=== PATIENT | male | born 1985 | race Caucasian/White ===

== ENCOUNTER 2021-11-21 21:13 | Emergency (ER) | payer BC, SELFPAY ==
--- NOTE | ~2021-11-21 | CT_ITS ---
EXAMINATION: CT soft tissue neck w con DATE: 11/22/2021 18:33 INDICATION: Strangulation TECHNIQUE: Computed tomography (CT) of the neck was performed with 75 mL Omnipaque-350 intravenous co ntrast. Automated exposure control and iterative reconstruction technique were employed. Exam dose: 450.10 mGy-cm total exam DLP. COMPARISON: None FINDINGS: No cervical mass lesion or lymphadenopathy. No subcutaneous emphysema or pneumomediastinum or pneumothorax. Oral pharyngeal airway, aryepiglottic folds, epiglottis and trachea appear intact. N o superior mediastinal mass lesion or lymphadenopathy. Included upper lung cazares are clear. Normal s ymmetric submandibular and parotid glands. No cervical spine fracture or dislocation or locked facet. IMPRESSION: No significant abnormality Reviewed, dictated and finalized at [facility] Reviewed, dictated and finalized at [facility]. IMPRESSION: No significant abnormality
[2021-11-21 21:20] VITALS: BP 129/84; PULSE 79; RESP 17; TEMP 36.1; O2SAT 99
--- NOTE | 2021-11-21 21:32 | PC.NURSE ---
While this nurse is drawing patients blood, patient also states I lied to you, I did drink a half pint today. Please help me, I know that if I go home today, I will commit suicide. I really need help.
[2021-11-21 21:48] LABS: Basophils Percent Auto 0.5 % (0.2-1.2); Eosinophils Absolute Auto 0.2 K/mm3 (0-0.3); Eosinophils Percent Auto 2.4 % (0-4.4); Hematocrit 42.6 % (42.0-52.0); Hemoglobin 14.5 g/dL (14.0-18.0); Immature Granulocyte Absolute 0.03 K/mm3 (0.00-0.031); Immature Granulocyte Percent A 0.4 % (0-0.5); Lymphocytes Absolute Auto 3.09 K/mm3 (0.9-3.2); Lymphocytes Percent Auto 39.3 % (18.3-44.2); Mean Corpuscular Hemoglobin 30.8 pg (26-34); Mean Corpuscular Volume 90.4 fl (80-100); Monocytes Absolute Auto 0.5 K/mm3 (0.1-0.6); Monocytes Percent Auto 6.7 % (2.6-8.5); Neutrophils Percent Auto 50.7 % (45.5-73.1); Platelet Count Result 298 k/mm3 (150-375); Red Blood Count 4.71 M/mm3 (4.6-6.20); Red Cell Distribution Width 12.1 % (11.5-14.5); White Blood Count 7.9 K/mm3 (4.5-10.0)
--- NOTE | 2021-11-21 21:54 | ED.GENADULT ---
HPI - General Adult General Chief complaint: Psychiatric Symptoms Stated complaint: SI Time Seen by Provider: 11/21/21 21:46 History of Present Illness HPI narrative: Patient 36-year-old gentleman who presents the emergency department with chief complaint of suicidal ideation. Patient reports that he has been suicidal for some period of time and reports that today he was feeling more suicidal and decided to take a belt and bullet around his neck. The patient reports no loss of consciousness denies neck pain patient states that he was talking to a person on the phone whenever he was doing this and they told him to stop that he decided to stop the patient states that he needs some psychiatric help and feels as though he needs to be hospitalized. Related Data Allergies Allergy/AdvReac Type Severity Reaction Status Date / Time No Known Allergies Allergy Verified 11/21/21 21:25 Review of Systems Review of Systems: A 10 system review of systems was completed on the patient and is negative except for what is stated in the HPI. Nursing and ancillary documentation was reviewed. [facility] Social History Social History Substance use type: methamphetamine Exam Narrative: GENERAL: Well-appearing, well-nourished, and in no acute distress. HEAD: Normocephalic, atraumatic. EYES: PERRLA and EOMI. ENT: Nares clear, no rhinorrhea or epistaxis. Mucous membranes moist. NECK: Supple. No bruising present no ligature pavon no tenderness no crepitance CHEST: Clear to auscultation. No respiratory distress. HEART: Regular rate and rhythm. No murmur heard. Normal peripheral pulses. ABDOMEN: Soft, nontender, nondistended, normal active bowel sounds. EXTREMITIES: Normal range of motion. No edema. SKIN: Warm, dry, no rash. NEURO: No focal deficits. Alert and oriented x3. PSYCH: Normal mood and affect. Course Course Emergency Course: Patient is medically cleared for psychiatric referral evaluation admission and transfer Vital Signs Vital signs: Vital Signs Temperature 36.1 C L 11/21/21 21:20 Pulse Rate 79 11/21/21 21:20 Respiratory Rate 17 11/21/21 21:20 Blood Pressure 129/84 11/21/21 21:20 Pulse Oximetry 99 11/21/21 21:20 Oxygen Delivery Room Air 11/21/21 21:20 Temperature 36.1 C L 11/21/21 21:20 Pulse Rate 79 11/21/21 21:20 Respiratory Rate 17 11/21/21 21:20 Blood Pressure 129/84 11/21/21 21:20 Pulse Oximetry 99 11/21/21 21:20 Oxygen Delivery Room Air 11/21/21 21:20 Medical Decision Making Vital Signs Vital Signs: Vital Signs Temperature 36.1 C L 11/21/21 21:20 Pulse Rate 79 11/21/21 21:20 Respiratory Rate 17 11/21/21 21:20 Blood Pressure 129/84 11/21/21 21:20 Pulse Oximetry 99 11/21/21 21:20 Oxygen Delivery Room Air 11/21/21 21:20 Temperature 36.1 C L 11/21/21 21:20 Pulse Rate 79 11/21/21 21:20 Respiratory Rate 17 11/21/21 21:20 Blood Pressure 129/84 11/21/21 21:20 Pulse Oximetry 99 11/21/21 21:20 Oxygen Delivery Room Air 11/21/21 21:20 Lab Data Result diagrams: 11/21/21 21:29 11/21/21 21:29 Labs: Lab Results 11/21/21 11/21/21 11/21/21 Range/Units 21:29 21:29 21:29 WBC 7.9 (4.5-10.0) K/mm3 RBC 4.71 (4.6-6.20) M/mm3 Hgb 14.5 (14.0-18.0) g/dL Hct 42.6 (42.0-52.0) % MCV 90.4 (80-100) fl MCH 30.8 (26-34) pg MCHC 34.0 (32-36) g/dl RDW 12.1 (11.5-14.5) % Plt Count 298 (150-375) k/mm3 MPV 10.0 (7.4-10.4) fl Immature Gran % (Auto) 0.4 (0-0.5) % Neut % (Auto) 50.7 (45.5-73.1) % Lymph % (Auto) 39.3 (18.3-44.2) % [place] % (Auto) 6.7 (2.6-8.5) % Eos % (Auto) 2.4 (0-4.4) % Baso % (Auto) 0.5 (0.2-1.2) % Lymph # (Auto) 3.09 (0.9-3.2) K/mm3 [place] # (Auto) 0.5 (0.1-0.6) K/mm3 Eos # (Auto) 0.2 (0-0.3) K/mm3 Baso # (Auto) 0.0 (0.0-0.1) K/mm3 Abs Immat
[2021-11-21 21:57] LABS: Ethanol 159 mg/dL (<10)
[2021-11-21 22:00] LABS: Alanine Aminotransferase 21 U/L (6-50); Albumin Level 4.8 g/dL (3.5-5.1); Alkaline Phosphatase 86 U/L (38-126); Anion Gap 14 mmol/L (8-16); Aspartate Amino Transferase 29 U/L (17-59); Bilirubin,Total 0.5 mg/dL (0.2-1.3); Blood Urea Nitrogen 18 mg/dL (9-20); Calcium 9.5 mg/dL (8.4-10.2); Carbon Dioxide 26 mmol/L (22-30); Chloride 103 mmol/L (98-107); Estimated CRCL calculation 66 ml/min; Estimated Glomerular Filt Rate > 60; Glucose 94 mg/dL (65-110); Potassium 4.2 mmol/L (3.4-5.0); Sodium 143 mmol/L (137-145)
--- NOTE | 2021-11-21 22:03 | PC.NURSE ---
Sitter at bedside. Patient states that he is wanting to kill himself and he doesnt feel safe leaving. Patient asks the nurse make sure he does not leave because he is going to kill himself. Patient states, I would like to be taken to a facility that will keep me and make sure I do not kill myself. I dont care if you have to take me in restraints This nurse told the patient if he is willing to go when they take him we will not need restraints. Patient states he is willing to go anywhere for help
[2021-11-22 00:34] LABS: Add Urine Microscopic? YES; Appearance Urine Clear (Clear); Bilirubin Urine Negative (Negative); Blood Urine 3+ (Negative); Color Urine Yellow (Yellow); Glucose Urine UA Negative (Negative); Ketones Urine Trace mg/dL (Negative); Leukocyte Esterase Ur Negative LEU/UL (Negative); Nitrate Urine Negative (Negative); Protein Urine 1+ mg/dL (Negative); Specific Grav Ur >= 1.030 (1.001-1.035); Urobilinogen Urine 0.2 mg/dL (<2.0); pH Urine 5.5 (5.0-9.0)
[2021-11-22 00:47] LABS: Bacteria Urine Trace /hpf; Mucus Urine Rare /lpf; RBC Urine >75 /hpf (0-2); Squamous Epithelial Cell Urine Rare /hpf (Few); WBC Urine 0-3 /hpf
[2021-11-22 00:52] LABS: Barbiturate Screen Urine Negative (Negative); Benzodiazepines Screen Urine Negative (Negative)
[2021-11-22 00:53] LABS: Cannabinoid Screen Urine Positive (Negative); Cocaine Screen Urine Negative (Negative); Methadone Screen Urine Negative (Negative); Opiate Screen Urine Negative (Negative); Phencyclidine Screen Urine Negative (Negative)
[2021-11-22 01:05] LABS: Amphetamine Screen Urine Negative (Negative)
[2021-11-22 01:09] LABS: Acetaminophen < 10 ug/mL (10-30); Salicylate < 1.0 mg/dL (2-20)
[2021-11-22 01:24] LABS: SARS-CoV-2 RNA PCR Negative
--- NOTE | 2021-11-22 06:02 | PC.NURSE ---
Tis RN called crisis and they stated no news on a bed yet.
--- NOTE | 2021-11-22 11:04 | PC.NURSE ---
1100 Assumed Pt care from Ewa Maddox RN
[2021-11-22] MEDS: NICOTINE (*PBKC) 7 MG PATCH 1 PATCH TRANSDERM (12:06)
--- NOTE | 2021-11-22 12:16 | PC.NURSE ---
1151 - Called [facility], spoke with Gabby to check the status of pt case. Pt was seen by Paola early this am, but Gabby stated that she had not received an email regarding pt. Will contact Paola to see the status and return call.
--- NOTE | 2021-11-22 13:13 | PC.NURSE ---
1247 Gabby from [facility] returned call. Requested pt chart sent to [facility] in [place]. Fax sent, 3900 Gabby called, requested facesheet to be sent to [facility], fax sent
--- NOTE | 2021-11-22 15:01 | PC.NURSE ---
1450 Gabby from [facility] called, stated [facility] was requesting the name of the Covid test, machine name and to have the paperwork sent to [facility]. Fax sent
--- NOTE | 2021-11-22 15:27 | PC.NURSE ---
Addendum entered by Cathleen Roy RN 11/22/21 15:49: [facility] called to speak with pt. Pt currently on the phone with Leana. Original Note: [facility] called to speak with pt. Pt currently on the phone with [facility]
--- NOTE | 2021-11-22 15:48 | PC.NURSE ---
9239 Leana called from [facility] requested chart sent. Fax sent
--- NOTE | 2021-11-22 17:07 | PC.NURSE ---
3081 Leana from [facility] called, stated chart not received. Refaxed chart
--- NOTE | 2021-11-22 17:29 | PC.NURSE ---
1728 Contacted [facility] to get a status update. Spoke with Ewa, will return call after being updated
--- NOTE | 2021-11-22 17:58 | PC.NURSE ---
174 Marielena from [facility] called. Updated on pt. Pt has been accepted pending negative Neck CT results. Will fax the results to Marielena after read.
--- NOTE | 2021-11-22 18:10 | PC.NURSE ---
Vivek Peguero from [facility] requesting to talk to pt.
--- NOTE | 2021-11-22 18:11 | PC.NURSE ---
1805 Leana called from [facility] requesting a repeat alcohol level. Will fax results.
[2021-11-22 18:33] LABS: Ethanol < 10 mg/dL (<10)
--- NOTE | 2021-11-22 18:58 | PC.NURSE ---
1857 Leana from [facility] received ETOH and copy of CT results. Marielena from [facility] received ETOH and copy of CT results
[2021-11-22 19:28] VITALS: BP 146/98; PULSE 81; RESP 16; TEMP 37; O2SAT 98
== END 2021-11-22 20:01 ==
PROVIDERS: Emergency Medicine; Emergency Provider Emergency Medicine
DX: R45.851 Suicidal ideations (principal); F32.9 Major depressive disorder, single episode, unspecified; Z20.822 Contact with and (suspected) exposure to COVID-19
CPT/HCPCS: 36415; 70491; 80053; 80307; 81001; 84443; 85025; 99285; A9270; C9803; Q9967; U0003; U0005

== ENCOUNTER 2024-11-15 07:07 | Emergency (ER) | payer BC, SELFPAY ==
[2024-11-15 07:03] VITALS: BP 156/95; PULSE 76; RESP 12; TEMP 36.8; O2SAT 100
--- NOTE | 2024-11-15 07:12 | ED_ITS ---
HPI - General Adult General Chief complaint: Unspecified Stated complaint: bilat leg pain History of Present Illness HPI narrative: 39-year-old male presents emergency department for evaluation for multiple complaints and including suicidal ideation suicidal thoughts. Patient is requesting to be admitted for these thoughts. Patient is also complaining posterior near pain has been ongoing for the last 3 days. Patient states he has been homeless for the last 3 days. Patient also does report he has history of glaucoma, he reports he has access to his eyedrops and does follow-up with a specialist in [place]. Related Data Allergies Allergy/AdvReac Type Severity Reaction Status Date / Time No Known Allergies Allergy Verified 11/15/24 07:13 Review of Systems 2 Review of Systems: All systems reviewed & are unremarkable except as noted in HPI and below PMFSH Social History Social History Substance use type: marijuana and methamphetamine Exam 2 Narrative: APPEARANCE: Well appearing, no pain, no distress, well-nourished. HEAD: normocephalic, atraumatic. EYES: PERRLA/EOMI, conjunctivae clear. NOSE: Normal no drainage EARS:TMS clear with good light reflex. THROAT: Pharynx clear, no exudate. NECK: Supple. No adenopathy, no masses. RESPIRATORY: Airway patent, respirations nonlabored. Clear to auscultation bilaterally, no rales, rhonchi, wheezing. CARDIOVASCULAR: Regular rate and rhythm without murmurs rubs or gallops. ABDOMINAL: Soft, nontender, nondistended, normal bowel sounds MUSCULOSKELETAL: Moves all extremities. Strength/ROM intact, No edema, No calf tenderness. NEURO: Alert. Cranial nerves II through XII intact. Good gait. Good coordination SKIN: Warm, dry. Normal Color Course Vital Signs Vital signs: Vital Signs Temperature 98.2 F 11/15/24 07:03 Pulse Rate 76 11/15/24 07:03 Respiratory Rate 12 11/15/24 07:03 Blood Pressure 156/95 H 11/15/24 07:03 Pulse Oximetry 100 11/15/24 07:03 Oxygen Delivery Room Air 11/15/24 07:03 Temperature 98 F 11/15/24 16:15 Pulse Rate 86 11/15/24 16:15 Respiratory Rate 15 11/15/24 16:15 Blood Pressure 124/77 11/15/24 16:15 Pulse Oximetry 100 11/15/24 16:15 Oxygen Delivery Room Air 11/15/24 07:03 Medical Decision Making MDM Narrative Medical decision making narrative: Patient does report hearing thoughts that tell him to hang himself with a rope around his neck. Patient is tender pressures were 19 in the right eye and 13 in the left eye. patient has normal vital signs. Patient is currently afebrile with no leukocytosis hemoglobin of 12.9. No acute abnormalities on the CMP. UA was negative for infection. Patient had negative salicylates negative acetaminophen and negative alcohol. Patient was negative for influenza RSV and for COVID. Patient is medically cleared at this time. Patient is medically cleared for crisis evaluation, transport and inpatient psychiatric hospitalization as needed. Vital Signs Vital Signs: Vital Signs Temperature 98.2 F 11/15/24 07:03 Pulse Rate 76 11/15/24 07:03 Respiratory Rate 12 11/15/24 07:03 Blood Pressure 156/95 H 11/15/24 07:03 Pulse Oximetry 100 11/15/24 07:03 Oxygen Delivery Room Air 11/15/24 07:03 Temperature 98 F 11/15/24 16:15 Pulse Rate 86 11/15/24 16:15 Respiratory Rate 15 11/15/24 16:15 Blood Pressure 124/77 11/15/24 16:15 Pulse Oximetry 100 11/15/24 16:15 Oxygen Delivery Room Air 11/15/24 07:03 Lab Data 11/15/24 07:30 11/15/24 07:30 Labs: Lab Results 11/15/24 11/15/24 Range/Units 07:30 07:57 WBC 6.8 (4.5-10.0) K/mm3 RBC 4.35 L (4.6-6.20) M/mm3 Hgb 12.9 L (14.0-18.0) g/dL Hct 38.8 L (42.0-52.0) % MCV 89.2 (80-100) fl MCH 29.7 (26-34) pg MCHC 33.2 (32-36) g/dl RDW 12.7 (11.5-14.5) % Plt Count 290 (150-375) k/mm3 MPV 9.7 (7.4-10.4) fl Immature Gran % (Auto) 0.4 (0-0.5) % Neut % (Auto) 68.6 (45.5-73.1) % Lymph % (Auto) 20.6 (18.3-44.2) % [place] % (Auto) 8.5 (2.6-8.5) % Eos % (Auto) 1.5 (0-4.4) % Baso % (Auto) 0.4 (0.2-1.2) % Lymph # (Auto) 1.40 (0.9-3.2) K/mm3 [place] # (Auto) 0.6 (0.1-0.6) K/mm3 Eos # (Auto) 0.1 (0-0.3) K/mm3 Baso # (Auto) 0.0 (0.0-0.1) K/mm3 Abs Immat Gran (auto) 0.03 (0.00-0.031) K/mm3 Absolute Neuts (auto) 4.7 (1.3-6.7) K/mm3 Absolute Nucleated RBC 0.000 (0.0-0.012) K/mm3 Nucleated RBC % 0.0 (0.0-0.2) % Sodium 135 L (137-145) mmol/L Potassium 4.5 (3.4-5.0) mmol/L Chloride 101 (98-107) mmol/L Carbon Dioxide 27 (22-30) mmol/L Anion Gap 7 (4-12) mmol/L BUN 16 (9-20) mg/dL Creatinine 1.02 (0.7-1.3) mg/dL Estim Creat Clear Calc 80 ml/min Estimated GFR > 60 (59 - ) Glucose 98 (65-110) mg/dL Calcium 8.9 (8.4-10.2) mg/dL Total Bilirubin 1.1 (0.2-1.3) mg/dL AST 35 (17-59) U/L ALT 49 (6-50) U/L Alkaline Phosphatase 111 (38-126) U/L Total Creatine Kinase 308 H (55-170) U/L Total Protein 7.2 (6.3-8.2) g/dL Albumin 4.1 (3.5-5.1) g/dL TSH 3.160 (0.465-4.680) uIU/mL Urine Color Yellow (Yellow) Urine Appearance Clear (Clear) Urine pH 5.5 (5.0-9.0) Ur Specific [place] 1.015 (1.001-1.035) Urine Protein Negative (Negative) mg/dL Urine Glucose (UA) Negative (Negative) mg/dL Urine Ketones 1+ H (Negative) mg/dL Ur Blood (Man) Negative (Negative) Urine Nitrate Negative (Negative) Urine Bilirubin Negative (Negative) Urine Urobilinogen 1.0 (<2.0) mg/dL Leukocyte Esterase Rfl Negative (Negative) CLINT/UL Urine RBC 0-2 (0-2) /hpf Urine WBC 0-5 (0-3) /hpf Ur Squamous Epith Cells None seen (Few) /hpf Urine Bacteria None seen /hpf Urine Casts 0-2 Salicylates < 1.0 L (2-20) mg/dL Urine Opiates Screen Negative (Negative) Urine Methadone Screen Negative (Negative) Acetaminophen < 10 L (10-30) ug/mL Ur Barbiturates Screen Negative (Negative) Ur Phencyclidine Scrn Negative (Negative) Ur Amphetamine Screen Negative (Negative) U Benzodiazepines Scrn Negative (Negative) Urine Cocaine Screen Negative (Negative) U Cannabinoids Screen Negative (Negative) Ethyl Alcohol < 10 (<10) mg/dL Influenza A (RT-PCR) Negative (Negative) Influenza B (RT-PCR) Negative (Negative) RSV (RT-PCR) Negative (Negative) SARS-CoV-2 RNA (RT-PCR) Negative (Negative) Discharge Plan Discharge Clinical Impression: Suicidal ideation Patient Disposition: Psychiatric Hosp Condition: Stable Patient Language: Chinese Follow-up/Referrals: PHYSICIAN,SUMMER SCHOOL COORDINATOR [Primary Care Provider, Internal Medicine]
[2024-11-15 07:44] LABS: Hematocrit 38.8 % (42.0-52.0); Hemoglobin 12.9 g/dL (14.0-18.0); Immature Granulocyte Percent A 0.4 % (0-0.5); Lymphocytes Absolute Auto 1.40 K/mm3 (0.9-3.2); Mean Corpuscular HGB Conc 33.2 g/dl (32-36); Mean Corpuscular Hemoglobin 29.7 pg (26-34); Mean Corpuscular Volume 89.2 fl (80-100); Nucleated Red Blood Cells Absolute Auto 0.000 K/mm3 (0.0-0.012); Nucleated Red Blood Cells Perc 0.0 % (0.0-0.2); Platelet Count Result 290 k/mm3 (150-375); Red Blood Count 4.35 M/mm3 (4.6-6.20); White Blood Count 6.8 K/mm3 (4.5-10.0)
[2024-11-15] MEDS: LACTATED RINGERS 1,000 ML 999 ML IV CONT (07:46)
--- NOTE | 2024-11-15 07:57 | PC.NURSE ---
patient had a knife on him upon arrival to ED, security called and knife was placed in safe.
--- NOTE | 2024-11-15 07:57 | PC.NURSE ---
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
[2024-11-15 08:00] LABS: Alanine Aminotransferase 49 U/L (6-50); Albumin Level 4.1 g/dL (3.5-5.1); Alkaline Phosphatase 111 U/L (38-126); Anion Gap 7 mmol/L (4-12); Aspartate Amino Transferase 35 U/L (17-59); Bilirubin,Total 1.1 mg/dL (0.2-1.3); Blood Urea Nitrogen 16 mg/dL (9-20); Calcium 8.9 mg/dL (8.4-10.2); Carbon Dioxide 27 mmol/L (22-30); Chloride 101 mmol/L (98-107); Creatine Kinase 308 U/L (55-170); Estimated CRCL calculation 80 ml/min; Estimated Glomerular Filt Rate > 60; Glucose 98 mg/dL (65-110); Potassium 4.5 mmol/L (3.4-5.0); Sodium 135 mmol/L (137-145); Total Protein 7.2 g/dL (6.3-8.2)
--- NOTE | 2024-11-15 08:01 | PC.NURSE ---
pt verbalizes he is having auditory hallucinations bad thoughts stating they are telling him to tie something around his neck
[2024-11-15 08:11] LABS: Acetaminophen < 10 ug/mL (10-30); Salicylate < 1.0 mg/dL (2-20)
[2024-11-15 08:13] LABS: Add Urine Microscopic? NO; Appearance Urine Clear (Clear); Glucose Urine UA Negative (Negative); Leukocyte Esterase Ur Negative LEU/UL (Negative); Nitrate Urine Negative (Negative); Specific Grav Ur 1.015 (1.001-1.035)
[2024-11-15 08:18] LABS: Influenza A QL RT-PCR Negative (Negative); Influenza B QL RT-PCR Negative (Negative); RSV RNA, RT-PCR Negative (Negative); SARS-CoV-2 RNA PCR Negative (Negative)
[2024-11-15 08:28] LABS: Cannabinoid Screen Urine Negative (Negative)
[2024-11-15 08:35] LABS: Thyroid Stimulating Hormone 3.160 uIU/mL (0.465-4.680)
[2024-11-15 09:08] LABS: Non Pathogenic Casts 0-2
[2024-11-15 16:15] VITALS: BP 124/77; PULSE 86; RESP 15; TEMP 36.6; O2SAT 100
== END 2024-11-15 23:38 ==
PROVIDERS: Emergency Provider Emergency Medicine
DX: R45.851 Suicidal ideations (principal); Z11.52 Encounter for screening for COVID-19
CPT/HCPCS: 36415; 80053; 80143; 80179; 80307; 81003; 82077; 82550; 84443; 85025; 87637; 96360; 99285; J7120